=== PATIENT | male | born 1985 | race Caucasian/White ===

== ENCOUNTER → 2021-04-03 | Outpatient (CLI) | payer BC ==
--- NOTE | 2021-04-03 11:59 | Diagnostic Imaging Report ---
PROCEDURE: US Scrotum. TECHNIQUE: Multiple real-time grayscale images were obtained over the scrotum in various projections bilaterally. INDICATION: Left testicular and inguinal pain. FINDINGS: Left testicle measures 5.5 x 2.2 x 3.1 cm. Right testicle measures 5 x 2.4 x 3.2 cm. There is normal color flow to both testes. The epididymides are normal. There are no hydroceles or varicoceles. With Valsalva maneuver images of the left inguinal region show a hernia which may contain nonincarcerated small bowel or intra-abdominal fat. IMPRESSION: 1. Normal-appearing testes. 2. Left inguinal hernia. Dictated by: Dictated on workstation # [id number]
== END ==
LOC: RAD 12:00
PROVIDERS: ATTEND Nurse Practitioner Family
DX: K40.90 Unilateral inguinal hernia, without obstruction or gangrene, not specified as recurrent (principal)
CPT/HCPCS: 76870